=== PATIENT | male | born 1975 | race African-American/Black ===

== ENCOUNTER 2020-11-12 15:31 | Emergency (ER) | payer SELFPAY ==
[~2020-11-12] VITALS: Ht 175.3 cm; Wt 65.0 kg
[2020-11-12] MEDS ORDERED: SODIUM CHLORIDE 0.9% 1,000 ML IV ONE (15:45)
[2020-11-12 16:52] LABS: BASOPHILS % 2.4 % (0.0-2.0); EOSINOPHILS % 1.1 % (0.0-5.0); HEMATOCRIT. 30.4 % (42.0-52.0); HEMOGLOBIN. 10.4 g/dL (14.0-18.0); LYMPHOCYTES % 29.7 % (20.0-50.0); MEAN CORPUSCULAR HEMOGLOBIN 33.2 pg (28.0-32.0); MEAN CORPUSCULAR VOLUME 97.4 fL (80.0-94.0); MEAN PLATELET VOLUME 8.3 fl (7.4-10.4); MONOCYTES % 9.4 % (2.0-8.0); NEUTROPHILS % 57.4 % (40.0-76.0); PLATELET 239 x1000/uL (130-400); RED BLOOD CELL COUNT 3.13 mill/uL (4.7-6.1); RED CELL DISTRIBUTION WIDTH 13.5 % (11.6-14.6)
[2020-11-12 16:57] LABS: CHLORIDE 101 mEq/L (98-107)
[2020-11-12 16:59] LABS: PROTHROMBIN TIME 11.2 sec (9.6-11.0)
[2020-11-12 17:02] LABS: ETHANOL BLOOD 259 mg/dL
[2020-11-12 17:06] LABS: CREATINE KINASE 261 IU/L (39-308)
[2020-11-12] MEDS ORDERED: PHEN100C4 MT (18:43)
[2020-11-12] MEDS ORDERED: KEPP500 MT (18:43)
[2020-11-12 19:56] VITALS: BP 110/68
== END 2020-11-12 19:57 | disposition home or self-care (01) ==
LOC: EDBD 15:31 → ER 15:31
DX: S00.11XA Contusion of right eyelid and periocular area, initial encounter (principal); F10.129 Alcohol abuse with intoxication, unspecified; G40.909 Epilepsy, unspecified, not intractable, without status epilepticus; F17.200 Nicotine dependence, unspecified, uncomplicated; E86.0 Dehydration; Z98.890 Other specified postprocedural states; Z79.899 Other long term (current) drug therapy; X58.XXXA Exposure to other specified factors, initial encounter; Y93.89 Activity, other specified; Y92.89 Other specified places as the place of occurrence of the external cause; Y99.8 Other external cause status; Y90.8 Blood alcohol level of 240 mg/100 ml or more
CPT/HCPCS: 36415; 70450; 71045; 80053; 80307; 80320; 80329; 82140; 82550; 84484; 85025; 85610; 93005; 96360; 99285; J7030; Z7610; G0480